=== PATIENT | female | born 1995 | race Caucasian/White ===

== ENCOUNTER 2023-01-07 06:35 | Day surgery (SDC) | payer OTHER ==
[2023-01-07] MEDS ORDERED: Transderm Scop 1.5MG Patch TOP PRN (06:42)
[2023-01-07] MEDS ORDERED: Lactated Ringers 1,000 ML IV ONE ×3 (06:50→09:48)
[2023-01-07] MEDS ORDERED: Sensorcaine 0.25% 10 ML ONE (06:50)
[2023-01-07] MEDS ORDERED: CEFAZOLIN 2 GM-D5W BAG** 2 GM/50 ML ML IV ONE (06:57)
[2023-01-07] MEDS ORDERED: Transderm Scop 1.5MG Patch ONE (06:57)
[2023-01-07] MEDS ORDERED: Lactated Ringers 1,000 ML IV SCH (07:00)
[2023-01-07] MEDS ORDERED: CEFAZOLIN 2 GM-D5W BAG** 2 GM/50 ML ML IV SCH (07:00)
[2023-01-07 07:04] LABS: HCG URINE TEST NEGATIVE (NEGATIVE)
[2023-01-07] MEDS ORDERED: SUBLIMAZE 100 MCG/2 ML ONE ×2 (08:32→10:16)
[2023-01-07] MEDS ORDERED: Xylocaine-Mpf 2% 5 Ml Vial ONE (08:32)
[2023-01-07] MEDS ORDERED: DIPRIVAN 200 MG/20 ML IV ONE (08:32)
[2023-01-07] MEDS ORDERED: Zofran 4 MG/2 ML VIAL ONE (08:33)
[2023-01-07] MEDS ORDERED: TORAdol 30 mg Injection ONE ×2 (08:33→11:06)
[2023-01-07] MEDS ORDERED: Decadron 4 MG INJ ONE (08:33)
[2023-01-07] MEDS ORDERED: DEXMEDETOMIDINE 80 MCG/20ML-NS IV ONE (08:33)
[2023-01-07] MEDS ORDERED: Versed 2 MG/2 ML Injection ONE (08:33)
[2023-01-07] MEDS ORDERED: Zemuron 100 MG/10 ML ONE (08:34)
[2023-01-07] MEDS ORDERED: ROBINUL ONE (08:42)
[2023-01-07] MEDS ORDERED: Ephedrine Sulfate 50 MG/ML ONE (08:48)
[2023-01-07] MEDS ORDERED: BRIDION 200MG/2ML IV ONE (09:22)
[2023-01-07] MEDS ORDERED: TORAdol 30 mg Injection IV PRN (11:04)
[2023-01-07] MEDS ORDERED: Zofran 4 MG/2 ML VIAL IV STA (11:14)
[2023-01-07] MEDS ORDERED: MORPHINE SULFATE 4 MG INJ IV ONE (11:32)
[2023-01-07] MEDS ORDERED: MORPHINE SULFATE 4 MG INJ ONE (11:34)
[2023-01-07 12:10] VITALS: BP 140/88; PULSE 50; O2SAT 97
[2023-01-07 14:18] LABS: Appearance Clear (Clear); Bacteria None Seen /HPF (None Seen); Bilirubin Negative (Negative); Blood Negative (Negative); Epithelial Cells None Seen /HPF (None Seen); Glucose, Urine Negative (Negative); Hyaline Casts NONE SEEN /LPF (0-2); Ketones Negative (Negative); Leukocyte Esterase Negative (Negative); Nitrite Negative (Negative); Protein,Urine Dip Negative (Negative); RBC 0-2 /HPF (0-5); Specific Gravity 1.015 (1.005-1.030); Urobilinogen 0.2 mg/dL (0.2); WBC 0-2 /HPF (0-5)
--- NOTE | 2023-01-08 10:25 | OP ---
SURGERY DATE/TIME: 01/07/2023 0839 PREOPERATIVE DIAGNOSES: 1) Multiparity desiring tubal sterilization. 2) Abnormal uterine bleeding. POSTOPERATIVE DIAGNOSES: 1) Multiparity desiring tubal sterilization. 2) Abnormal uterine bleeding. PROCEDURES: 1) Laparoscopic tubal sterilization via Falope ring application on the right fallopian tube and bipolar cauterization on the left tube. 2) D&C and NovaSure ablation. SURGEON: Lalito Diamond D.O. ASSISTANT CROSS COUNTRY COACH: Desiree Hammond, surgical coder. ANESTHESIA: General. ESTIMATED BLOOD LOSS: Minimal. COMPLICATIONS: None. INDICATIONS: The risks, benefits, indications and alternatives of the procedure were reviewed with the patient prior to the procedure. The patient understood the risk of infection, bleeding, bowel injury, bladder injury, ureteral injury, uterine perforation, pelvic infection, possible and ectopic that may be associated with this procedure where all other forms of control had been discussed with the patient. At this point the patient desires to have this surgery as a possible means to alleviate her current medical condition as well as a form of control measure. DESCRIPTION OF PROCEDURE AND FINDINGS: At this point the patient is taken to the operating room, given general sedation, placed in dorsal lithotomy position, prepped and draped in the usual sterile fashion. A weighted speculum is then placed in the patient's vagina and the anterior lip of the cervix is grasped with a single tooth tenaculum. Endocervical dilators were advanced through the endocervical canal as a means to dilate the cervix and the uterine manipulator was then placed in through the endocervical region as a means to manipulate the uterus. From this point attention was then turned to the patient's abdomen where a 5 mm skin incision was made in the umbilical fold and a 5 mm trocar and sleeve were advanced under direct visualization where pneumoperitoneum was obtained with 4 liters of CO2 gas. An additional incision was made approximately 2 cm above the symphysis pubic where an 8 mm incision was made and an 8 mm trocar and sleeve were advanced under direct visualization. From this point the uterus was elevated and the Falope ring applicator was then placed on the right tube on the isthmic region. A good knuckle of tube was taken by the instrument and Falope ring was released with good application. Hemostasis was obtained at this point. The same procedure was attempted on the left tube. However, the Falope ring did not release after two attempts and at this point bipolar cautery was used to coagulate and cauterize multiple points on a segment of the left tube including the corneal region. Hemostasis was obtained at this point. From this point all instruments were removed from the patient's abdomen and the incisions were closed with 4-0 Monocryl suture. Attention was then turned to the patient's vaginal region where a weighted speculum was then placed into the vaginal region. The cervix was then taken with a tenaculum was the uterine manipulator was removed and the cervix was then dilated once again where at this point a curette had been placed into the fundus of the uterus where curettage was performed in all quadrants of the uterus retrieving a mild to moderate amount of tissue. From this point NovaSure was then placed into the fundal region and retracted approximately 1 cm with a length of 5 cm that was used and a width of 2.7 cm where it was engaged and the ablation time was 53 seconds where at this point after complete ablation the instrument was disengaged and removed from the uterine cavity without complication. From this point all instruments were removed from the patient's vaginal region. The patient was then taken out of the dorsal lithotomy position, was taken out of anesthesia and was then taken to the recovery room in stable condition. All instruments and laps were accounted for x2.
== END 2023-01-07 12:15 | disposition home or self-care (01) ==
LOC: SDC 06:35
PROVIDERS: ATTEND Obstetrics & Gynecology
DX: Z30.2 Encounter for sterilization (principal); N93.9 Abnormal uterine and vaginal bleeding, unspecified
CPT/HCPCS: 58120; 58600; 81001; 81025; 87086; J0690; J1100; J1885; J2250; J2270; J2405; J2704; J3010; A9270-GY

== ENCOUNTER 2023-07-09 04:53 | Emergency (ER) | payer OTHER ==
[2023-07-09 05:12] VITALS: TEMP 97.8
[2023-07-09] MEDS ORDERED: Sodium Chloride 0.9% 1000 ML 1,000 ML IV STA ×2 (05:36→08:18)
[2023-07-09] MEDS ORDERED: Zofran 4 MG/2 ML VIAL IV ONE (05:36)
[2023-07-09] MEDS ORDERED: MORPHINE SULFATE 2 MG INJ IV ONE (05:36)
[2023-07-09] MEDS ORDERED: Zofran 4 MG/2 ML VIAL ONE (05:44)
[2023-07-09] MEDS ORDERED: MORPHINE SULFATE 2 MG INJ ONE (05:45)
[2023-07-09] MEDS ORDERED: Sodium Chloride 0.9% 1000 ML 1,000 ML ONE ×2 (05:45→08:24)
[2023-07-09 05:54] LABS: Absolute Neutrophil Ct (ANC) 8.32 x10^3/uL (1.4-6.9); BASOPHIL % 0.4 % (0.0-0.4); Basophil (Absolute #) 0.04 x10^3/uL (0-0.4); Eosinophil (Absolute #) 0 x10^3/uL (0-0.5); Hemoglobin 13.7 g/dL (12.0-16.0); IMMATURE GRAN # 0.02 x10^3u/L (0.00-0.03); IMMATURE GRAN % 0.2 % (0.00-0.4); Lymphocyte (Absolute #) 0.79 x10^3/uL (1.0-4.6); Lymphocytes % 8.4 % (24.0-44.0); Mean Cell Volume 88.1 fL (78-100); Mean Corpuscular Hemoglobin 30.2 pg (26-32); Mean Corpuscular Hgb Concent. 34.3 g/dL (32-36); Mean Platelet Volume 10.8 fL (7.5-11.0); Monocyte (Absolute #) 0.29 x10^3/uL (0.0-1.3); Monocytes % 3.1 % (0.0-12.0); Neutrophil % 87.9 % (36.0-66.0); Platelet Count 295 x10^3/uL (150-450); Red Blood Count 4.54 x10^6/uL (4.1-5.4); Red Cell Distribution Width 11.9 % (11.5-14.0); White Blood Count 9.5 x10^3/uL (4.0-10.5)
--- NOTE | 2023-07-09 05:59 | ERPHSYRPT ---
- History of Present Illness Time Seen by Provider: 07/09/23 05:15 Historian: patient Exam Limitations: no limitations Patient Subjective Stated Complaint: pt states she has been vomiting intermittently for last 4 days. states vomiting had been getting better with hot showers but has not helped today Triage Nursing Assessment: pt alert and oreinted, answers questions approp. pt back to room per wheelchair and transfers to stretcher per self. pt vomiting liquid. bowel sounds present x4 quads. abd soft and nontender to light palpation. skin warm and dry. Physician History: Patient is a 28-year-old female presents to our ED for evaluation of Nausea vomiting and epigastric pain. Pain started approximately 4 days ago. Patient went to [facility]. Patient was diagnosed with Cannabinoid hyperemesis syndrome.Patient states that she has not smoked marijuana in over 4 days and therefore cannot be Cannabinoidhyperemesis syndrome. Patient is otherwise a daily cannabis user.Patient adds that she has known gallstones.She is concerned that she may be experiencing a Cholecystitis or pancreatitis.No trauma. No fever.No associated chest pain or shortness of breath. Symptoms are moderate in intensity. Palpation reproduces pain. Pain improves somewhat with warm showers and rest.Patient states she is otherwise healthy. She voices no other complaints or concerns at this time. Patient has a friend at bedside who has contributed to HPI Portions of this note were created with voice recognition technology. There may be grammatical, spelling, punctuation or sound alike errors Timing/Duration: day(s) (4) Activities at Onset: none Quality: aching Abdominal Pain Onset Location: epigastric Pain Radiation: no radiation Severity of Pain-Max: moderate Severity of Pain-Current: mild Modifying Factors: Improves With: palpation Associated Symptoms: denies symptoms Previous symptoms: same symptoms as today Allergies/Adverse Reactions: No Known Drug Allergies Allergy (Verified 07/09/23 05:19) Home Medications: No Reportable Medications [No Reported Medications] 07/09/23 [History] Hx Tetanus, Diphtheria Vaccination/Date Given: No Hx Influenza Vaccination/Date Given: No Hx Pneumococcal Vaccination/Date Given: No Immunizations Up to Date: No Travel Risk - International Travel Have you traveled outside of the country in past 3 weeks: No - Coronavirus Screening Are you exhibiting any of the following symptoms?: No Close contact with a COVID-19 positive Pt in past 14-21 Days: No - Vaccine Status Have you recieved a Covid-19 vaccination: No - Review of Systems Constitutional: No Symptoms, No Fever, No Chills Eyes: No Symptoms Ears, Nose, & Throat: No Symptoms Respiratory: No Symptoms, No Cough, No Dyspnea Cardiac: No Symptoms, No Chest Pain, No Edema, No Syncope Abdominal/Gastrointestinal: No Symptoms, No Abdominal Pain, No Nausea, No Vomiting, No Diarrhea Genitourinary Symptoms: No Symptoms, No Dysuria Musculoskeletal: No Symptoms, No Back Pain, No Neck Pain Skin: No Symptoms, No Rash Neurological: No Symptoms, No Dizziness, No Focal Weakness, No Sensory Changes Psychological: No Symptoms Endocrine: No Symptoms Hematologic/Lymphatic: No Symptoms Immunological/Allergic: No Symptoms All Other Systems: Reviewed and Negative - Past Medical History Pertinent Past Medical History: No Psycho-Social History: Anxiety, Depression, Panic Disorder, Other Other Medical History: suicidal - Past Surgical History Past Surgical History: No - Social History Smoking Status: Former smoker Exposure to second hand smoke: No Drug Use: marijuana Patient Lives Alone: No - Female History Hx Last Menstrual Period: tubal in december- Hx Now: No - Nursing Vital Signs Nursing Vital Signs: Initial Vital Signs Temperature 97.8 F 07/09/23 04:58 Pulse Rate 68 07/09/23 04:58 Respiratory Rate 20 07/09/23 04:58 Blood Pressure 102/64 07/09/23 04:58 O2 Sat by Pulse Oximetry 100 07/09/23 04:58 Pain Scale Pain Intensity 7 - Physical Exam General Appearance: no apparent distress, alert Eye Exam: PERRL/EOMI, eyes nml inspection Ears, Nose, Throat Exam: normal ENT inspection, pharynx normal, moist mucous membranes Neck Exam: normal inspection, non-tender, supple, full range of motion Respiratory Exam: normal breath sounds, lungs clear, airway intact, No respiratory distress Cardiovascular Exam: regular rate/rhythm, normal heart sounds, normal peripheral pulses Gastrointestinal/Abdomen Exam: soft, tenderness (Epigastric tenderness to palpation.), No mass Back Exam: normal inspection, normal range of motion, No CVA tenderness, No vertebral tenderness Extremity Exam: normal inspection, normal range of motion, pelvis stable Neurologic Exam: alert, oriented x 3, cooperative, sensation nml, No motor deficits Skin Exam: normal color, warm, dry Lymphatic Exam: No adenopathy SpO2 Interpretation: normal SpO2: 100 O2 Delivery: Room Air - Course Nursing assessment & vital signs reviewed: Yes Ordered Tests: Active Orders 24 hr Category Date Time Status IV Insertion STAT Care 07/09/23 05:36 Ordered ABDOMEN AND PELVIS W/0 CONTRAS [CT] Stat Exams 07/09/23 05:37 Ordered CBC W DIFF Stat Lab 07/09/23 05:36 Ordered CMP Stat Lab 07/09/23 05:36 Ordered LIPASE Stat Lab 07/09/23 05:36 Ordered TROPONIN Q4H Lab 07/09/23 05:45 Ordered TROPONIN Q4H Lab 07/09/23 09:45 Ordered TROPONIN Q4H Lab 07/09/23 13:45 Ordered UA W/RFX UR CULTURE Stat Lab 07/09/23 05:36 Ordered Medication Summary Generic Name Dose Route Start Last Admin Trade Name Freq PRN Reason Stop Dose Admin Sodium Chloride 1,000 mls @ 999 mls/hr 07/09/23 05:36 Sodium Chloride 0.9% 1000 Ml IV 07/09/23 06:36 .Q1H1M STA Discontinued Medications Generic Name Dose Route Start Last Admin Trade Name Freq PRN Reason Stop Dose Admin Sodium Chloride Confirm 07/09/23 05:45 Sodium Chloride 0.9% 1000 Ml Administered 07/09/23 05:46 Dose 1,000 mls @ ud .ROUTE .STK-MED ONE Morphine Sulfate 2 mg 07/09/23 05:36 Morphine Sulfate 2 Mg/Ml Inj IV 07/09/23 05:37 STAT ONE Morphine Sulfate Confirm 07/09/23 05:45 Morphine Sulfate 2 Mg/Ml Inj Administered 07/09/23 05:46 Dose 2 mg .ROUTE .STK-MED ONE Ondansetron HCl 4 mg 07/09/23 05:36 Ondansetron Hcl 4 Mg/2 Ml Vial IV 07/09/23 05:37 STAT ONE Ondansetron HCl Confirm 07/09/23 05:44 Ondansetron Hcl 4 Mg/2 Ml Vial Administered 07/09/23 05:45 Dose 4 mg .ROUTE .STK-MED ONE - Progress Progress: improved Progress Note: Patient is a 28-year-old female presents to the emergency department for evaluation of nausea vomiting and epigastric pain. Patient was seen at [facility] recently for the same. Patient was diagnosed with cannabinoid hyperemesis syndrome and urinary tract infection. She was discharged home with a prescription for Macrobid and Zofran. 07/09/23 06:14 It is currently the change of shift. Labs pending. CT results pending. Patient reported that she was still experiencing nausea. Droperidol ordered. Administration pending. It is currently the change of shift. Patient will be endorsed to Dr. Ayala will follow-up on pending orders and disposition patient accordingly. Portions of this note were created with voice recognition technology. There may be grammatical, spelling, punctuation or sound alike errors 07/09/23 06:37 Complexity of problem addressed is moderate acute complicated No critical care time Complexity of data reviewed and analyzed is Extensive. Test ordered test reviewed. Results analyzed and correlated clinically.Patient's friend at [facility] served as a primary historian. Risk of complication and or risk of morbidity/mortality of patient management is High. Patient received IV controlled medication for pain management Morphine administered via IV Vital stable. Plan of care established for shared decision making. No social determinants of health present impede follow-up. Portions of this note were created with voice recognition technology. There may be grammatical, spelling, punctuation or sound alike errors 07/09/23 06:39 Counseled pt/family regarding: lab results, diagnosis, rad results - Departure Clinical Impression: Abdominal pain, Nausea and vomiting Condition: Stable Critical Care Time: No Referrals: AMRITA BLOOD PA [Primary Care Provider] - Follow up/PCP as directed Additional Instructions: Discharge/Care Plan NUNOMATT HARDY EVAN was seen on 07/09/23 in the Emergency Room. The patient was counseled regarding Diagnosis,Lab results, Imaging studies, need for follow up and when to return to the Emergency Room. Prescriptions given: Discharge Note I have spoken with the patient and/or caregivers. I have explained the patient's condition, diagnosis and treatment plan based on the information available to me at this time. I have answered the patient's and/or caregiver's questions and addressed any concerns. The patient and/or caregivers have as good understanding of the patient's diagnosis, condition and treatment plan as can be expected at this point. The vital signs have been stable. The patient's condition is stable and appropriate for discharge from the emergency department. The patient will pursue further outpatient evaluation with the primary care physician or other designated or consulting physician as outlined in the discharge instructions. The patient and/or caregivers are agreeable to this plan of care and follow-up instructions have been explained in detail. The patient and/or caregivers have received these instruction. The patient/and or caregivers are aware that any significant change in condition or worsening of symptoms should prompt an immediate return to this or the closest emergency department or call 911.
[2023-07-09 06:18] LABS: ALBUMIN 4.8 g/dL (3.5-5.0); ANION GAP 17.5 MEQ/L (5-15); BILIRUBIN,TOTAL 0.8 mg/dL (0.2-1.3); Calcium 9.8 mg/dL (8.4-10.2); Creatinine 1 0.62 mg/dL (0.52-1.04); EST GLOMERULAR FILTRATION RATE 125.9 ML/MIN; Potassium 3.7 mmol/L (3.5-5.1); Total Protein 8.5 g/dL (6.3-8.2)
--- NOTE | 2023-07-09 06:40 | XRAY ---
CLINICAL HISTORY:pain COMPARISON:None. TECHNIQUE:A CT scan of the abdomen and pelvis was performed without contrast. Coronal and sagittal reconstructive images were also obtained. FINDINGS: Abdomen: The liver is normal in size. No focal or diffuse parenchymal abnormality. The intrahepatic biliary radicals and the bile ducts are normal. The gallbladder harbors a stone that measures 11 mm with suspicion of intraluminal differential fluid leveling that could be sludge. No pericholecystic collection was seen. The spleen, pancreas, and adrenal glands are unremarkable. The kidneys are unremarkable. They are normal in size and shape. No calculi, masses or hydronephrosis. The ascending colon, the transverse colon, the descending colon, visualized small bowel loops are unremarkable. There is no evidence of significant enlargement of the mesenteric or retroperitoneal lymph nodes. No CT evidence of acute appendicitis or intestinal obstruction. Pelvis: The urinary bladder is unremarkable. No gross uterine or adnexal abnormality could be identified. The rectosigmoid colon is unremarkable. No evidence of pelvic lymphadenopathy. A scan through the lower chest reveals an unremarkable lung basis and heart. The osseous structures in the pelvis, lower rib cage, and lumbar spine show no abnormality. No lytic or sclerotic bone lesions. IMPRESSION: 1. Gallbladder stone with suspicion of intraluminal differential fluid leveling that could be sludge would recommend US assessment. 2. No CT evidence of acute appendicitis or intestinal obstruction. 3. The rest of the study is unremarkable. Electronically Signed by: Steffanie Garces MD. (07/09/2023 06:36:34 EST)
[2023-07-09 08:14] LABS: Appearance Clear (Clear); Bacteria Few /HPF (None Seen); Bilirubin Negative (Negative); Blood Negative (Negative); Epithelial Cells Moderate /HPF (None Seen); Glucose, Urine Negative (Negative); Ketones >=160 (Negative); Leukocyte Esterase Negative (Negative); Nitrite Negative (Negative); Ph 7.5 (4.6-8.0); Protein,Urine Dip 30 (Negative); RBC 0-2 /HPF (0-5); Specific Gravity >=1.030 (1.005-1.030); Urobilinogen 0.2 mg/dL (0.2)
[2023-07-09 08:15] VITALS: RESP 16
[2023-07-09 08:15] LABS: ADD URINE CULTURE? YES (NO)
--- NOTE | 2023-07-09 08:37 | XRAY ---
Indication: Abdomen pain, nausea, and vomiting. Two-dimensional gallbladder sonogram performed. Comparison: None Gallbladder normally distended with 1.5 cm mobile gallstone. No abnormal gallbladder wall thickening or pericholecystic fluid. Common bile duct measures 3.7 mm. No intrahepatic biliary distention. Remaining visualized liver, pancreas, and right kidney are sonographically normal. Right kidney measures 10.5 cm in length. Impression: Cholelithiasis without cholecystitis or biliary distention.
[2023-07-09 09:37] VITALS: BP 114/78; PULSE 53; O2SAT 97
== END 2023-07-09 09:46 | disposition home or self-care (01) ==
LOC: ED 04:53
DX: K80.20 Calculus of gallbladder without cholecystitis without obstruction (principal); R11.2 Nausea with vomiting, unspecified; R10.13 Epigastric pain; E86.0 Dehydration; Z28.310 Unvaccinated for COVID-19
CPT/HCPCS: 36000; 36415; 74176; 76705; 80053; 81001; 83690; 84484; 85025; 87086; 96360; 96361; 96374; 96375; 99284; J2270; J2405